=== PATIENT | male | born 1970 | race Two or more races ===

== ENCOUNTER 2017-12-28 16:54 | Emergency (ER) | payer OTHER ==
[~2017-12-28] VITALS: Ht 170.2 cm; Wt 77.1 kg
--- NOTE | 2017-12-28 17:35 | NUR ---
PATIENT TO ED DT L SIDED CHEST WALL PAIN, 3/10, ACHING X 5 DAYS WORST TODAY. PATIENT IS AWAKE AND ALERT,. NOT IN DISTRSS. SKIN IS WARM TO TOUCH AND NON DIAPHORETIC. PATIENT IS AFBERILE.VSS
[2017-12-28] MEDS ORDERED: LORAZEPAM 1 MG TABLET ONE (17:53)
[2017-12-28] MEDS ORDERED: LORAZEPAM 1 MG TABLET PO ONE (18:00)
[2017-12-28 18:05] LABS: BASOPHILS # (AUTO) 0.1 /CMM (0.0-0.2); BASOPHILS % (AUTO) 0.7 % (0.0-2.0); EOSINOPHILS % (AUTO) 0.9 % (0.0-6.0); HEMATOCRIT 49 % (39-51); HEMOGLOBIN 16.2 g/dL (13.5-17.5); LYMPHOCYTES % (AUTO) 22.7 % (20.0-44.0); MEAN CORPUSCULAR HGB CONC 33 g/dl (31.0-36.0); MEAN CORPUSCULAR VOLUME 86 fL (80-96); MONOCYTES # (AUTO) 0.7 /CMM (0.1-1.30); MONOCYTES % (AUTO) 8.4 % (2.0-12.0); NEUTROPHILS # (AUTO) 5.9 /CMM (1.8-8.9); NEUTROPHILS % (AUTO) 67.3 % (43.0-81.0); PLATELET COUNT (AUTO) 304 /CMM (150-450); RDW COEFFICIENT OF VARIATION 12.1 (11.5-15.0); RED BLOOD CELL COUNT(AUTO) 5.65 MIL/uL (4.5-6.0); WHITE BLOOD COUNT (AUTO) 8.8 K/uL (4.3-11.0)
[2017-12-28 18:16] LABS: CALCIUM, SERUM 9.4 mg/dL (8.5-10.1); CARBON DIOXIDE 30 mmol/L (21-32); CHLORIDE 97 mmol/L (98-107); CREATININE 1.2 mg/dL (0.6-1.3); GLUCOSE 164 mg/dL (74-106); POTASSIUM 3.9 mmol/L (3.5-5.1); SODIUM SERUM 133 mmol/L (136-145); UREA NITROGEN, BLOOD 14 mg/dL (7-18)
[2017-12-28 18:22] LABS: INR 0.92 (0.87-1.13)
[2017-12-28 18:23] LABS: ALANINE AMINOTRANSFERASE 52 U/L (12-78); ALBUMIN 4.4 g/dL (3.4-5.0); ALKALINE PHOSPHATASE 75 U/L (46-116); ASPARTATE AMINOTRANSFERASE 24 U/L (15-37); BILIRUBIN,DIRECT 0.2 mg/dL (0.0-0.2); BILIRUBIN,TOTAL 1.7 mg/dL (0.2-1.0); TOTAL PROTEIN, SERUM 8.4 g/dL (6.4-8.2)
[2017-12-28 18:25] LABS: TROPONIN I < 0.017 ng/mL (0.00-0.056)
[2017-12-28] MEDS ORDERED: IV NS 0.9% 1,000 ML BAG IV ONE (19:00)
[2017-12-28 19:30] VITALS: BP 129/81
== END 2017-12-28 19:30 | disposition home or self-care (01) ==
LOC: ER 16:58
DX: R07.89 Other chest pain (principal); I10 Essential (primary) hypertension; K21.9 Gastro-esophageal reflux disease without esophagitis; F41.9 Anxiety disorder, unspecified; R00.0 Tachycardia, unspecified
CPT/HCPCS: 36415; 71045; 80048; 80076; 84443; 84484; 85025; 85730; 93005; 99285; A4606; J7030; Z7610